=== PATIENT | female | born 1980 | race Asian ===

== ENCOUNTER → 2021-02-20 | Outpatient (CLI) | payer OTHER | LOC: MC.RAD 08:54 | DX: N63.10 Unspecified lump in the right breast, unspecified quadrant (principal); R92.2 Inconclusive mammogram ==

== ENCOUNTER → 2021-02-25 | Outpatient (CLI) | payer OTHER | LOC: MC.RAD 10:44 | DX: N63.10 Unspecified lump in the right breast, unspecified quadrant (principal) ==